=== PATIENT | male | born 2005 | race Caucasian/White ===

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

== ENCOUNTER 2025-02-19 12:59 | Emergency (ER) | payer BC ==
[2025-02-19] MEDS ORDERED: Sodium Chloride 0.9% 2.5 ML Syringe FLUSH PRN (13:50)
[2025-02-19] MEDS ORDERED: Sodium Chloride 0.9% 10 ML Syringe FLUSH PRN (13:50)
[2025-02-19] MEDS: Ketorolac 30 MG/ML SDV IVPUSH ONE (14:10)
[2025-02-19 14:24] LABS: BASOPHILS ABSOLUTE AUTO 0.06 K/uL (0.00-0.30); BASOPHILS PERCENT AUTO 0.9 % (0.0-1.0); EOSINOPHILS ABSOLUTE AUTO 0.24 K/uL (0.00-0.70); EOSINOPHILS PERCENT AUTO 3.7 % (0.0-5.0); IMMATURE GRAN ABSOLUTE AUTO 0.03 K/uL (0.00-0.05); IMMATURE GRAN PERCENT AUTO 0.5 % (0.0-0.4); LYMPHOCYTES ABSOLUTE AUTO 2.23 K/uL (2.00-8.80); LYMPHOCYTES PERCENT AUTO 34.6 % (50.0-65.0); MEAN PLATELET VOLUME 9.6 fL (9.4-12.4); MONOCYTES ABSOLUTE AUTO 0.45 K/uL (0.10-1.40); MONOCYTES PERCENT AUTO 7.0 % (2.0-10.0); NEUTROPHILS ABSOLUTE AUTO 3.44 K/uL (1.50-8.50); NEUTROPHILS PERCENT AUTO 53.3 % (35.0-45.0); NRBC ABSOLUTE 0.00 K/uL (0.00-0.03); NRBC PERCENT 0.0 /100WBC (0.0-0.2); PLATELET COUNT,PLT 276 K/uL (150-400); RED BLOOD CELL COUNT 5.40 M/uL (4.52-5.90); WHITE BLOOD CELL COUNT,WBC 6.45 K/uL (4.5-13.5)
[2025-02-19 14:58] LABS: A/G RATIO 1.3 (0.9-1.6); ALANINE AMINOTRANSFERASE,ALT 25 IU/L (14-63); ASPARTATE AMNIOTRANSFERASE,AST 18 IU/L (15-37); BILIRUBIN TOTAL 2.0 mg/dL (0.2-1.0); BLOOD UREA NITROGEN,BUN 17 mg/dL (7.0-18.0); CHLORIDE,CL 102 mmol/L (98-107); CREATININE 1.1 mg/dL (0.8-1.3); EST CRCL DRUG DOSING (CG) 125.58 mL/min; GLUCOSE RANDOM 91 mg/dL (74-106); POTASSIUM,K 4.1 mmol/L (3.5-5.1); PROTEIN TOTAL,TP 7.2 g/dL (6.4-8.2); SODIUM,NA 139 mmol/L (136-148)
[2025-02-19 15:04] LABS: ESTIMATED GFR 99 mL/min (>60)
[2025-02-19 15:18] LABS: CARBON DIOXIDE,CO2 27.7 mmol/L (21.0-32.0)
[2025-02-19 16:30] VITALS: BP 123/68; PULSE 60
== END 2025-02-19 16:35 | disposition home or self-care (01) ==
LOC: MW.ED 12:59
DX: J40 Bronchitis, not specified as acute or chronic (principal); E80.6 Other disorders of bilirubin metabolism; E86.0 Dehydration; Z91.048 Other nonmedicinal substance allergy status; Z79.899 Other long term (current) drug therapy; Z75.3 Unavailability and inaccessibility of health-care facilities
CPT/HCPCS: 36415; 71046; 80053; 84484; 85025; 93005; 96361; 96374; 99284; J1885; J7030; 93010